=== PATIENT | female | born 1940 | race Caucasian/White ===

== ENCOUNTER 2018-06-19 06:59 | Day surgery (SDC) | payer MEDICARE ==
--- NOTE | 2018-06-10 16:55 | HP ---
CC: Dr. Malu Olivo; Dr. Cecilia Harris * PREOPERATIVE HISTORY AND PHYSICAL: DATE OF ADMISSION/SURGERY: 06/19/18 - [facility] This patient is scheduled for same-day surgery admission by Dr. Sahu, on 06/19/18. DATE OF PREOPERATIVE HISTORY AND PHYSICAL EXAMINATION: 06/10/18. ATTENDING SURGEON: Dr. Kimberly Sahu * (dictated by Kate Avery, CITLALLI) CHIEF COMPLAINT: Right breast cancer and left breast bloody nipple discharge. HISTORY OF PRESENT ILLNESS: The patient is a 77-year-old female, recently evaluated by Dr. Sahu. She has been seen in the past for bloody left nipple discharge and 2 years ago, she had a terminal duct excision by Dr. Sahu, which showed ductal carcinoma in situ. She was managed with an attempt at aromatase inhibitor; however, all versions of hormonal therapies made her blood pressure go up, so they were discontinued. By the time it was discovered that she was not a candidate for aromatase inhibitor, enough time had gone by that it was felt that she would not benefit from radiation therapy, which she had not been thought to need in first place. She is now followed by Dr. Harris every 6 months and on a recent mammogram that was done because she was having brand new nipple discharge from the left breast. A right breast nodule was identified. She underwent core needle biopsy under ultrasound guidance of the right breast nodule, which revealed invasive ductal adenocarcinoma, ER and VT positive and her HER2/jojo is pending. She has also been scheduled for the galactography of the left breast. She has no first-degree relative with breast cancer, but has 2 great-aunts who has breast cancer diagnosed at an elderly age. The patient had ovarian cancer in 1993 treated with total abdominal hysterectomy bilateral salpingo-oophorectomy. She has been tested for BRCA mutation and was found to be negative. She was on control pill for a few months at age 24, she was on Premarin after her hysterectomy for 5 years and estrogen cream for about 5 years after that. Age of menarche was 12, first was at age 27 and she did breast feed and menopause was surgical at age 53[address] Sahu has examined the patient and discussed the findings and has recommended needle localization excision of the right breast cancer with sentinel lymph node biopsy and left breast terminal duct excision. Dr. Sahu described the nature of the surgical procedure, relevant risks and benefits and today, I reviewed the typical postoperative care and recovery. The patient has had a chance to ask questions and stated that she understands the information and is satisfied with the answers given to her questions. She will sign surgical consent on the day of surgery. PAST MEDICAL HISTORY: Mild asthma and recent flare up. PAST SURGICAL HISTORY: Total abdominal bilateral salpingo-oophorectomy for ovarian cancer, 1993 at [facility]; gastric bypass, 1999; lap band, 2006 and left breast lumpectomy, 2016. OB HISTORY: 1, para 1. She is up-to-date with pelvic exam. MEDICATIONS: 1. Contrave 8-90 mg 1 tablet p.o. b.i.d. 2. Ranitidine 150 mg 1 tablet p.o. daily. 3. MiraLax half tablespoon daily. 4. Fish oil supplement 1200 mg daily. 5. Calcium carbonate 500/400 one p.o. daily. 6. Vitamin B12, 500 mcg 3 times a week. 7. Vitamin D 50,000 International Units 3 times a month. 8. Multivitamins with minerals daily. ALLERGIES: PENICILLIN and SULFA have caused rash, CIPRO caused acne, COMPAZINE and TIGAN cause motor restlessness. FAMILY HISTORY: No first-degree relatives with breast cancer, but 2 great aunts had breast cancer diagnosed at an elderly age; no known anesthesia complications, bleeding tendencies or clotting disorders. 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 She quit smoking many years ago. She drinks a glass of wine per week and denies the use of other substances. Her sister will be with her on the day of surgery. REVIEW OF SYSTEMS: Constitutional: No fevers, chills, excessive fatigue, or weight loss. Endocrine: No diabetes, or thyroid disease. Hematologic: No easy bruising or bleeding. No history of deep vein thrombosis or pulmonary embolism. She had one blood transfusion in 1993 at the time of her hysterectomy. Breasts: Abnormal as described of history of present illness. Respiratory: No dyspnea on exertion. No chronic cough. Cardiovascular: No anginal chest pain or palpitations. Gastrointestinal: No nausea, vomiting, diarrhea, GI bleeding, constipation, or change in bowel habits. Genitourinary: No dysuria. Musculoskeletal: No complaints of joint or back pain. Neurologic : No headache or blurred vision. No areas of focal weakness or numbness. General: She reports slow recovery coming out of the anesthesia after the gastric bypass in 1999. PHYSICAL EXAMINATION GENERAL SURVEY: The patient is a 77-year-old female, well developed, overweight , in no acute distress. VITAL SIGNS: Height 65 inches, weight 195 pounds, body mass index 32.4. Blood pressure 118/76, pulse 66 and regular, respiratory rate 18, temperature 97.5 tympanic. HEENT: Benign. NECK: Supple. No cervical lymphadenopathy. No supraclavicular lymphadenopathy. LUNGS: Breath sounds bilaterally clear and equal. BREASTS: Essentially symmetric; there is a scar barely visible in the circumareolar area of the left breast; there is no skin dimpling or nipple retraction. There is no axillary adenopathy bilaterally. Palpation of the right breast reveal dense tissue in the upper outer quadrant and irregular tissue in the inframammary fold. Palpation of the left breast reveals dense tissue in the upper outer quadrant without discrete masses. There is no right breast nipple discharge; there is left breast nipple discharge that looks bloody and test positive for blood. HEART: Regular rate and rhythm. No murmurs or rubs appreciated. ABDOMEN: Well-healed surgical scars. Active bowel sounds. Palpable lap band port, left mid abdomen. No obvious masses, organomegaly or evidence of ventral hernia. PELVIC: Exam deferred. RECTAL: Exam deferred. BACK: No CVA tenderness. EXTREMITIES: Warm without edema or skin ulceration. NEUROLOGIC: Alert and oriented x3. Steady gait. SKIN: Warm, dry, intact. IMPRESSION: 1. Right breast cancer. 2. Bloody left breast nipple discharge. PLAN: Same-day surgery admission to Dr. Sahu's service, on 06/19/18 for needle localization excision of right breast cancer and sentinel lymph node biopsy and left breast terminal duct excision. JOSE AVERY, CITLALLI [id number]/[facility] #: [id number] MTDD
[2018-06-19] MEDS ORDERED: Buffered Lidocaine 0.9% SYRIN* 5 ML/SYR SYRINGE INTRADERM ONE (07:00)
[2018-06-19] MEDS ORDERED: Lidocaine 2.5%/Prilocain 2.5%* 5 GM TUBE ONE ×2 (07:14→07:48)
--- NOTE | 2018-06-19 10:26 | RAD ---
INDICATION: Right breast cancer COMPARISON: Wire needle localization same date; mammogram May 28, 2018 TECHNIQUE/FINDINGS: Informed consent was obtained. A routine timeout protocol was utilized. The right breast was prepped in usual fashion and 4 intradermal injections in the periareolar region were made in divided dosages. A total of 0.35 mCi of technetium Tc 99m sulfur colloid was injected. Shortly following injection the sentinel node was identified and then marked and the skin surface. The patient tolerated this procedure well. IMPRESSION: SUCCESSFUL SENTINEL NODE IMAGING WITH SKIN LOCALIZATION. OF THE SENTINEL NODE IN THE RIGHT AXILLA
[2018-06-19] MEDS ORDERED: Heparin VIAL(*) 5000 UNITS/ML VIAL (FIVE THOUSAND) ONE (11:54)
[2018-06-19] MEDS ORDERED: Clindamycin 900 MG IVPREMIX(* 900 MG/50 ML SDV IV ONE (11:55)
[2018-06-19] MEDS ORDERED: Midazolam* 1 MG/ML 2 ML VIAL (2 MG) ONE (13:27)
[2018-06-19] MEDS ORDERED: fentaNYL* 50 MCG/ML 2 ML VIAL (100 MCG VIAL) ONE ×4 (13:27→16:54)
[2018-06-19] MEDS ORDERED: Lidocaine 1% MPF wEPI 200,000* 30 ML SDV ONE (13:54)
[2018-06-19] MEDS ORDERED: Lidocaine 1% INJ* 10 MG/ML 30 ML SDV ONE (13:55)
[2018-06-19] MEDS ORDERED: ROPIVACAINE 5 MG/ML 30 ML BTL (0.5%) ONE ×2 (13:56→16:17)
[2018-06-19] MEDS ORDERED: Lidocaine 2% PF * 5 ML VIAL ONE (14:16)
[2018-06-19] MEDS ORDERED: diPHENhydraMINE IV* 50 MG/ML 1 ml VIAL (BENADRYL) IV PRN (15:23)
[2018-06-19] MEDS ORDERED: Levalbuterol 0.63MG/3ML NEB* UNIT OF USE INH PRN (15:23)
[2018-06-19] MEDS ORDERED: Acetaminophen TAB* 325 MG PO PRN (15:23)
[2018-06-19] MEDS ORDERED: Nalbuphine* 10 MG/ML 1 ML VIAL IV PRN (15:23)
[2018-06-19] MEDS ORDERED: fentaNYL* 50 MCG/ML 2 ML VIAL (100 MCG VIAL) IV PRN (15:23)
[2018-06-19] MEDS ORDERED: Naloxone* 0.4 MG/ML 1 ML VIAL IV PRN (15:23)
[2018-06-19] MEDS ORDERED: Acetaminophen IV 1GM/100ML * 1,000 MG/100 ML VIAL IVPB PRN (15:23)
[2018-06-19] MEDS ORDERED: HYDROcodone/ACETAMIN 5-325 MG* 1 TAB PO PRN ×2 (15:23)
[2018-06-19] MEDS ORDERED: Ondansetron INJ* 2 MG/ML VIAL IV PRN (15:23)
--- NOTE | 2018-06-19 16:28 | RAD ---
INDICATION: Wire needle localization right breast COMPARISON: Mammogram June 03, 2018 TECHNIQUE/FINDINGS:: Informed consent was obtained. A routine timeout protocol was utilized. The right breast was prepped in usual fashion and under mammographic guidance and utilizing a 7.5 cm Serna wire, the microclip was localized without difficulty. The patient tolerated the procedure well. The specimen is pending. A sentinel node scan is to follow. IMPRESSION: SUCCESSFUL WIRE NEEDLE POSITION. THE SPECIMEN RADIOGRAPH IS PENDING. ADDENDUM: The specimen radiograph is now available and shows the wire, microclip, and nodule within the specimen.
[2018-06-19] MEDS ORDERED: Ondansetron INJ* 2 MG/ML VIAL ONE (16:48)
[2018-06-19] MEDS ORDERED: Ketorolac INJ* 30 MG/ML 1 ML VIAL ONE (16:48)
--- NOTE | 2018-06-19 16:59 | OP ---
Operative Report - Blank - Operative Report Date of Operation: 06/19/18 Note: Brief Operative Note: Preop Dx: Right breast cancer; Left nipple discharge Postop Dx: same Procedure: excision Right breast cancer (after needle-localization); right sentinel lymph node bx; Left terminal duct excision Anesthesia: MACIEJ Surgeon: Luis Alberto Asst: GENA Juárez; TATIANNA Lucero Fluids: 600 ml RL EBL: 50 ml Drains: none Specimen: Right breast cancer w/ additional breast tissue superior to first ( needle-loc) specimen); right sentinel lymph node; Left terminal duct excision Findings: dictated
[2018-06-19] MEDS ORDERED: Acetaminophen IV 1GM/100ML * 100 ML ONE (17:40)
[2018-06-19 18:59] VITALS: BP 110/72
--- NOTE | 2018-06-22 04:17 | OP ---
CC: Dr. Malu Olivo; [facility] * DATE OF OPERATION: 06/19/18 - [facility] DATE OF : 40 SURGEON: Kimberly Sahu MD UPSET WELDING MACHINE OPERATOR: GENA Marshall and GENA Lucero, student PRE-OP DIAGNOSES: Right breast cancer, left breast nipple discharge. POST-OP DIAGNOSES: Right breast cancer, left breast nipple discharge. OPERATIVE PROCEDURE: Terminal duct excision of the left breast and right breast needle localization excision of breast cancer and sentinel lymph node biopsy. INDICATIONS: Ms. Rogel is a 77-year-old woman who was recently diagnosed with right breast cancer who was also noted to have left breast bloody nipple discharge. This prompted the plan for surgical intervention. On the morning of the surgery, she underwent needle localization and sentinel lymph node localization without difficulty and she was then brought to the operating room. DESCRIPTION OF PROCEDURE: She was placed on the OR table in the supine position and given general anesthesia. The chest wall was prepped and draped in the usual sterile fashion including the right axilla. Attention was turned first to the left side. Here after infiltrated with local anesthetic, a curvilinear circumareolar incision was made following a scar from a previous terminal duct excision. Subcutaneous tissue was then divided with a combination of sharp, blunt, and electrocautery dissection to expose the region of the tissue behind the nipple where a small probe had been placed. It was noted that the probe did not proceed very far consistent with terminal duct having been excised in the past. Therefore, the decision was made to excise tissue from the retroareolar region that connected directly to the area of the probe. This retro-nipple tissue was dissected free from surrounding tissue and grasped and divided at the dermal level and then some breast tissue in the retroareolar region adjacent to this was excised and marked in the usual fashion and handed off as a specimen. Hemostasis was assured with electrocautery and then closure was accomplished with 3-0 Vicryl in the subcutaneous layer and the skin was closed with 4-0 Prolene in the subcuticular fashion. Attention was then turned to the right breast. Here, the wire was noted to emerge from the medial aspect of the breast but the abnormality was in the deep retroareolar position, so the decision was made to make the incision in the circumareolar fashion inferiorly and this was done after infiltrated with local anesthetic. Tissue was dissected free down to the level of the wire. This was then brought through the skin and to the wound and dissection around the tip of the wire was completed. In the process of doing this, it was recognized that the specimen was transected so the tissue was transected such as the specimen came out in 2 parts 1 had the wire and the other had nodule that seemed consistent with cancer. Both specimens were marked in the usual fashion, the second one being noted to be adjacent to the first specimen and superior to it. Both specimens were then handed off and report eventually came back from radiology then did the first specimen containing the wire and the second specimen contained the clip. Meanwhile, hemostasis was achieved with electrocautery. Once this was adequate, additional local was instilled into the wound and closure was accomplished with 3-0 Vicryl in the subcutaneous layer and the skin was closed with 4-0 Surgipro in a subcuticular fashion. Attention was finally turned to axilla here. A sentinel node had been marked and using the navigator in this area, the counts were obviously elevated so local anesthetic was instilled into the skin and a curvilinear incision was made in the inferior axillary line. Subcutaneous tissue was divided with electrocautery down to the level of the axillary fat pad and then a search was made for the sentinel node. It was immediately apparent and tested for in-situ counts which were around 2500 and then using a combination of sharp and blunt dissection with clips to control blood and lymphatic vessels that approach the gland, it was excised. The ex vivo counts were around 1600. The axillary bed counts were then tested and were noted to be zero. Confirming that this sentinel node was the only sentinel node, it was handed off as a specimen. Hemostasis was assured with the combination of electrocautery, clips, and suture ligature and once this appeared adequate, additional local was instilled into the wound and then closure was accomplished with 3-0 Vicryl in the subcutaneous layer and the skin was closed with 4-0 Prolene in the subcuticular fashion. Steri-Strips and dry sterile dressings were applied to all incisions. All sponge and instrument counts were correct. The patient tolerated the procedure well and was transferred to Recovery in a stable condition. [id number]/[facility] #: [id number] [facility]ITAL[facility]
== END 2018-06-19 19:05 | disposition home or self-care (01) ==
LOC: SDS 06:59
PROVIDERS: ATTEND Surgery
DX: C50.911 Malignant neoplasm of unspecified site of right female breast (principal); N64.52 Nipple discharge; J45.909 Unspecified asthma, uncomplicated; K21.9 Gastro-esophageal reflux disease without esophagitis
CPT/HCPCS: 78195; 88307; 88342; A9270-GY; A9541; J1644; J1885; J2001; J2250; J2405; J2795; J3010

== ENCOUNTER 2019-09-28 08:27 | Day surgery (SDC) | payer MEDICARE ==
[~2019-09-28 08:27] MED LIST: Acetaminophen TAB* 325 MG PO PRN; Buffered Lidocaine 1% SYRIN* 1 ML/SYRINGE INTRADERM ONE; Cyclopentolate 1% OPTH.SOL* 2 ML BTL ONE; Ketorolac 0.5% OPHTH (NF) 0.5 % 5 ML BTL ONE; Lidocaine 1% MPF ** 5 ML VIAL ONE; Neomycin/Polymy/Dex OPHTH.OIN* 3.5 GM ONE; Phenylephrine OPHTH SOL 2.5%* 2 ML ONE; Tetracaine 0.5% OPTH.SOL 4 ML* 1 DROP BTL ONE; Tropicamide 1% OPTH.SOL* BTL ONE
[2019-09-28] MEDS ORDERED: fentaNYL* 50 MCG/ML 2 ML VIAL (100 MCG VIAL) ONE (09:36)
[2019-09-28] MEDS ORDERED: Midazolam* 1 MG/ML 2 ML VIAL (2 MG) ONE ×2 (09:36→10:07)
[2019-09-28 10:56] VITALS: BP 133/62
--- NOTE | 2019-09-28 14:42 | OP ---
DATE OF OPERATION: 09/28/19 [facility] DATE OF : 40 SURGEON: Eligio Grande MD ZOOLOGY PROFESSOR: None. ANESTHESIA: Topical with intravenous sedation. PRE-OP DIAGNOSIS: Cataract, right eye. POST-OP DIAGNOSIS: Cataract, right eye. OPERATIVE PROCEDURE: Phacoemulsification and cataract extraction with posterior chamber intraocular lens implant, right eye. COMPLICATIONS: None. BLOOD LOSS: None. DESCRIPTION OF PROCEDURE: The patient was brought to the operating room and received intravenous sedation. A drop of tetracaine was placed in her right eye. The patient was prepped and draped in the usual sterile fashion for ophthalmic surgery and attention was directed to the right eye where a speculum was placed. A paracentesis was created at the 11 o'clock position and 0.1 cc of 1% preservative- free lidocaine was injected into the anterior chamber followed by DisCoVisc. The eye was digitally stabilized while a 2.75 mm keratome was used to create a triplanar clear corneal incision at the 9 o'clock position. A continuous curvilinear capsulorrhexis was created using a cystotome and Utrata forceps. BSS on a cannula was used to hydrodissect the lens from the capsule. Phacoemulsification was performed in a whetoq-bpe-prztavz technique to create four fragments which were removed. Residual cortical material was removed with irrigation and aspiration. The capsule of the eye was polished. Provisc was used to inflate the capsular bag. The ORA device was employed to help guide lens choice. An SV25T0 21.5 diopter lens was chosen. This lens was folded and inserted into the capsular bag. Irrigation and aspiration was performed to remove viscoelastic from the eye. BSS on a cannula was used to hydrate the corneal stroma and seal the wound. At the end of the case, the pupil was round. The lens was centered and stable. The eye pressure appeared normal and the wound was watertight. The speculum was removed. Topical Maxitrol ointment was placed on the surface of the eye. The eye was closed, patched and shielded and the patient was sent to the recovery room in stable condition with postoperative instructions and followup appointment given. [id number]/[facility] #: [id number] MOMO
== END 2019-09-28 10:43 | disposition home or self-care (01) ==
LOC: OREAST 08:27
PROVIDERS: ATTEND Ophthalmology
DX: H25.11 Age-related nuclear cataract, right eye (principal); J45.909 Unspecified asthma, uncomplicated; Z87.891 Personal history of nicotine dependence; Z85.3 Personal history of malignant neoplasm of breast; Z85.43 Personal history of malignant neoplasm of ovary; M19.90 Unspecified osteoarthritis, unspecified site
CPT/HCPCS: A9270-GY; J2250; J3010; V2788

== ENCOUNTER 2019-10-05 08:18 | Day surgery (SDC) | payer MEDICARE ==
[~2019-10-05 08:18] MED LIST changes: -Acetaminophen TAB* 325 MG PO PRN; -Cyclopentolate 1% OPTH.SOL* 2 ML BTL ONE; -Ketorolac 0.5% OPHTH (NF) 0.5 % 5 ML BTL ONE; -Lidocaine 1% MPF ** 5 ML VIAL ONE; -Neomycin/Polymy/Dex OPHTH.OIN* 3.5 GM ONE; -Phenylephrine OPHTH SOL 2.5%* 2 ML ONE; -Tetracaine 0.5% OPTH.SOL 4 ML* 1 DROP BTL ONE; -Tropicamide 1% OPTH.SOL* BTL ONE
[2019-10-05] MEDS ORDERED: Midazolam* 1 MG/ML 2 ML VIAL (2 MG) ONE (09:25)
[2019-10-05] MEDS ORDERED: Propofol* 10 MG/ML 20 ML BTL ONE (09:35)
[2019-10-05] MEDS ORDERED: Lidocaine 2% PF * 5 ML VIAL ONE (09:36)
--- NOTE | 2019-10-05 11:01 | OP ---
OPERATIVE REPORT: DATE OF OPERATION: 10/05/19 DATE OF : 40 SURGEON: Eligio Grande MD. BLASTING MACHINE OPERATOR: None. ANESTHESIA: Topical with intravenous sedation. PRE-OP DIAGNOSIS: Cataract, left eye. POST-OP DIAGNOSIS: Cataract, left eye. OPERATIVE PROCEDURE: Phacoemulsification and cataract extraction with posterior chamber intraocular lens implant, left eye. COMPLICATIONS: None. BLOOD LOSS: None. OPERATIVE FINDINGS: The patient was brought to the operating room and given intravenous sedation. A drop of tetracaine was placed in her left eye. The patient was prepped and draped in the usual ster ile fashion for ophthalmic surgery and attention was directed to the left eye where a speculum was pl aced. A paracentesis was created at the 5 o'clock position and 0.1 cc of 1% preservative- free lidoc amy was injected into the anterior chamber followed by DisCoVisc. The eye was digitally stabilized while a 2.75 mm keratome was used to create a triplanar clear corneal incision at the 3 o'clock posit ion. A continuous curvilinear capsulorrhexis was created with a cystotome and Utrata forceps. BSS o n a cannula was used to hydrodissect the lens from the capsule. Phacoemulsification was performed in a vuiazd-ydj-xarsuyc technique to create four fragments which were removed. Residual cortical mater ial was removed with irrigation and aspiration. The capsule bag was polished. The capsule was inflat ed with Provisc. The intraocular pressure was measured. The surface of the eye was lubricated. The ORA device was employed. The lens choice was confirmed. An SV25T0 21.5 diopter lens was folded and inserted into the capsular bag. Viscoelastic was removed with irrigation and aspiration. BSS on a cannula was used to hydrate the corneal stroma and seal the wound. At the end of the case, the pupil was round. The lens was centered and stable. The eye pressure appeared normal and the wound was wa tertight. The speculum was removed. Topical Maxitrol ointment was placed on the surface of the eye. The eye was closed, patched and shielded. The patient was sent to the recovery room in stable critical access hospitalion with postoperative instructions and followup appointment given. [id number]/[facility] #: [id number]
[2019-10-05 11:46] VITALS: BP 109/62
[2019-10-05] MEDS ORDERED: Tetracaine 0.5% OPTH.SOL 4 ML* 1 DROP BTL ONE (16:02)
[2019-10-05] MEDS ORDERED: Tropicamide 1% OPTH.SOL* BTL ONE (16:02)
[2019-10-05] MEDS ORDERED: Neomycin/Polymy/Dex OPHTH.OIN* 3.5 GM ONE (16:02)
[2019-10-05] MEDS ORDERED: Cyclopentolate 1% OPTH.SOL* 2 ML BTL ONE (16:02)
[2019-10-05] MEDS ORDERED: Phenylephrine OPHTH SOL 2.5%* 2 ML ONE (16:02)
[2019-10-05] MEDS ORDERED: Ketorolac 0.5% OPHTH (NF) 0.5 % 5 ML BTL ONE (16:02)
[2019-10-05] MEDS ORDERED: Lidocaine 1% MPF ** 5 ML VIAL ONE (16:02)
== END 2019-10-05 10:14 | disposition home or self-care (01) ==
LOC: OREAST 08:18
PROVIDERS: ATTEND Ophthalmology
DX: H25.12 Age-related nuclear cataract, left eye (principal); Z85.3 Personal history of malignant neoplasm of breast; J44.9 Chronic obstructive pulmonary disease, unspecified; K58.9 Irritable bowel syndrome, unspecified
CPT/HCPCS: A9270-GY; J2250; J2704; V2788